=== PATIENT | female | born 1960 | race Caucasian/White ===

== ENCOUNTER 2017-05-28 19:41 | Emergency (ER) | payer BC ==
[~2017-05-28] VITALS: Ht 172.7 cm; Wt 83.4 kg
[~2017-05-28 19:41] MED LIST: ATIVAN1 M2 PO; CELEBREX200 MG; CELEXA40 M2 PO; COUMADIN7.5 M1 PO; FOLIC ACID1 M1 PO; IBUPROFEN200 MG; LEVOTHYROXINE112 MC3 PO; LEXAPRO10 MG; LORAZEPAM1 MG; METOPROLOL TART25 MG; OMEPRAZOLE40 M2 PO; STRATTERA18 MG; STRATTERA25 MG; STRATTERA80 M1 PO; SUDAFED 12 HOU120 MG; SYNTHROID112 MCG; TYLENOL EXTRA500 MG; VITAMIN D2000 UNI1 PO; ZOCOR20 M1 PO; ZYPREXA10 M1 PO; ZYPREXA5 MG
[2017-05-28] MEDS ORDERED: XARELTO20 M1 PO (22:48)
[2017-05-28] MEDS ORDERED: ATOMOXETINE HCL80 MG PO (22:49)
[2017-05-28] MEDS ORDERED: CALCIUM CARBON500 M2 PO (22:50)
[2017-05-28] MEDS ORDERED: VITAMIN D1000 UNI2 PO (22:50)
[2017-05-29] MEDS ORDERED: NORCO 5-325 TA1 EACH PO (00:06)
== END 2017-05-29 00:10 ==
LOC: EDMED 19:41
PROC: 0HQFXZZ Repair Right Hand Skin, External Approach (ICD-10-PCS; principal; 2017-05-28)
DX: S61.011A Laceration without foreign body of right thumb without damage to nail, initial encounter (principal); W26.0XXA Contact with knife, initial encounter